=== PATIENT | male | born 1985 | race Two or more races ===

== ENCOUNTER 2018-05-29 00:10 | Emergency (ER) | payer MEDICAID ==
[~2018-05-29] VITALS: Ht 177.8 cm; Wt 90.7 kg
--- NOTE | 2018-05-29 00:27 | Emergency Room Report ---
History of Present Illness General Chief Complaint: Head Injury Source: Patient Present Illness HPI Is a 32-year-old male with no past medical history. He presents with chief complaint of head injury. Patient said he was drunk and was going home. He slipped and fell forward and hit his head on the ground. Unknown length of loss of consciousness. He has a small cut to the forehead. He has blood all over his head. No other injury. He said he felt better now. No dizziness. Denies any trauma from assault. Allergies: Coded Allergies: No Known Allergies (Unverified , 05/29/18) Patient History Past Medical History: see triage record, old chart reviewed Past Surgical History: none Pertinent Family History: none Social History: Reports: alcohol use; Denies: smoking Immunizations: other Reviewed Nursing Documentation: PMH: Agreed; PSxH: Agreed Nursing Documentation-PMH Past Medical History: No Stated History Review of Systems Eye: Denies: eye pain, blurred vision ENT: Denies: ear pain, nose congestion, throat swelling Respiratory: Denies: cough, shortness of breath Cardiovascular: Denies: chest pain, palpitations Gastrointestinal: Denies: abdominal pain, diarrhea, nausea, vomiting Musculoskeletal: Denies: back pain, joint pain Skin: Denies: rash Neurological: Denies: headache, numbness Endocrine: Denies: increased thirst, increased urine Hematologic/Lymphatic: Denies: easy bruising All Other Systems: negative except mentioned in HPI Physical Exam Vital Signs Date Time Temp Pulse Resp B/P (MAP) Pulse Ox O2 Delivery O2 Flow Rate FiO2 05/29/18 00:19 98.6 85 20 158/82 100 Room Air vitals with high blood pressure Sp02 EP Interpretation: reviewed, normal General Appearance: well appearing, no apparent distress, alert Head: normocephalic, other - 1-1/2 cm laceration to the forehead with small hematoma Eyes: bilateral eye PERRL, bilateral eye EOMI ENT: hearing grossly normal, normal pharynx Neck: full range of motion, supple, no meningismus Respiratory: chest non-tender, lungs clear, normal breath sounds Cardiovascular #1: regular rate, rhythm, no murmur Gastrointestinal: normal bowel sounds, non tender, no mass, no organomegaly, no bruit, non-distended Musculoskeletal: back normal, gait/station normal, normal range of motion Psychiatric: mood/affect normal Skin: warm/dry Procedures Laceration/Wound Repair Laceration/Wound Repair : Consent: Verbal Wound Location: face Wound's Depth, Shape: linear Wound Length (cm): 1 Wound Explored: clean Irrigated w/ Saline (ccs): 1000 Wound Repaired With: Dermabond Patient Tolerated: Well Complications: None Medical Decision Making Diagnostic Impression: Primary Impression: Acute head injury Qualified Codes: S09.90XA - Unspecified injury of head, initial encounter Additional Impressions: Forehead laceration Qualified Codes: S01.81XA - Laceration without foreign body of other part of head, initial encounter Alcohol intoxication Qualified Codes: F10.920 - Alcohol use, unspecified with intoxication, uncomplicated ER Course this patient presents with a head injury and laceration. No intracranial bleeding. We'll discharge home. CT/MRI/US Diagnostic Results CT/MRI/US Diagnostic Results : Imaging Test Ordered: CT head Impression negative per radiologist Last Vital Signs Date Time Temp Pulse Resp B/P (MAP) Pulse Ox O2 Delivery O2 Flow Rate FiO2 05/29/18 00:19 98.6 85 20 158/82 100 Room Air Status: improved Disposition: HOME, SELF-CARE Condition: Stable Scripts No Active Prescriptions or Reported Meds Additional Instructions: follow-up with your doctor in 7 days. Return if worse. Shai Kinney MD May 29, 2018 00:27
[2018-05-29] MEDS ORDERED: Hydrogen Peroxide 473ml Bottle TOPIC ONE (00:28)
[2018-05-29] MEDS: Tetanus/Diptheria/Pertussis IM ONE (00:31)
[2018-05-29 00:37] VITALS: BP 158/82
--- NOTE | 2018-05-29 00:53 | NUR ---
ER Nurse Note: Pt came from [facility] with family c/o forehead laceration d/t drinking five 6oz beers and fell on the stairs. Per pt, pt lost LOC for unk time, found by his . Pt a&ox4, VSS, no signs of distress. Pt ambulated, covered with dried blood; pt presented with a laceration on the forehead, actively bleeding. Will continue to [facility].
--- NOTE | 2018-05-29 01:03 | NUR ---
ER Nurse Note: Pt came back from CT; ERMD at pt side, using dermabond for the laceration. Pt tolerated well. All orders completed per ERMD orders. Bed in lowest position, will continue to [facility].
[2018-05-29 01:25] VITALS: BP 158/82
--- NOTE | 2018-05-29 01:25 | NUR ---
ER Nurse Note: Pt seen, treated, medicially cleared for discharge by CAROLE. Discharge instructions given with repeat verbalization by pt. Instructed pt follow up with primary care physican within one week. Pt a&ox4, VSS, no signs of distress. Pt left with steady gait. ID band removed. Pt left with own transportation with all belongings. Addendum: 05/29/18 at 0225 by NARENIMMoreno ER Nurse Note: Pt cleaned and given a new shirt. Pt walked with steady gait, left with family member.
--- NOTE | 2018-05-29 08:40 | Diagnostic Imaging Report ---
Indication: Reason For Exam: TRAUMA, pain Technique: Continuous helical CT scanning of the head was performed without intravenous contrast material. Axial and coronal 5 mm sections were generated. Radiation dose was minimized using automated exposure control Dose: Total Dose Length Product - DLP 1358.[address] Dose Index - CTDIvol(s) 70.38 mGy. Comparison: None FINDINGS: There is no acute intracranial hemorrhage, mass effect or cortical edema. Is no shift of midline structures. The ventricles, cisterns and sulci are normal for age. Mastoid air cells are clear. There is mild paranasal sinus disease with a partially visualized polyp versus retention cyst in the left maxillary sinus. Mild frontal scalp soft tissue swelling. No associated acute calvarial fracture. IMPRESSION: No evidence of acute intracranial hemorrhage, mass effect or cortical edema. Mild frontal scalp soft tissue swelling. No acute calvarial fracture. Mild paranasal sinus disease with partially visualized retention cyst versus polyp in the left maxillary sinus. Salient findings correspond with the statrad preliminary report. The CT scanner at [facility] is accredited by the [employer] and the scans are performed using protocols designed to limit radiation exposure to as low as reasonably achievable to attain images of sufficient resolution adequate for diagnostic evaluation.
== END 2018-05-29 01:25 | disposition home or self-care (01) ==
LOC: EMR 00:49
DX: S01.81XA Laceration without foreign body of other part of head, initial encounter (principal); W01.198A Fall on same level from slipping, tripping and stumbling with subsequent striking against other object, initial encounter; Y92.89 Other specified places as the place of occurrence of the external cause; F10.129 Alcohol abuse with intoxication, unspecified; Z23 Encounter for immunization
CPT/HCPCS: 12011; 70450; 90471; 90715; 99284; Z7502

== ENCOUNTER 2019-06-24 13:47 | Emergency (ER) | payer MEDICAID ==
[~2019-06-24] VITALS: Ht 167.6 cm; Wt 103.9 kg
[2019-06-24 13:52] VITALS: BP 123/77
[2019-06-24] MEDS ORDERED: Tetanus/Diptheria/Pertussis IM ONE (14:00)
[2019-06-24] MEDS ORDERED: Lidocaine 2% 20mg/ml/EPI 0.01mg/ml 20ml INJ ONE (14:15)
[2019-06-24] MEDS ORDERED: Bacitracin Oint UD TOPIC ONE (14:45)
--- NOTE | 2019-06-24 14:50 | Emergency Room Report ---
History of Present Illness General Chief Complaint: Laceration Source: Patient Present Illness HPI 34 YO male presents to the ED c/o 03/22 in severity painful laceration to the right forearm. Pt. reports he was cut last night at approx. 12pm by a piece of metal that was sticking out of some drywall. He denies fall or notable trauma. He denies suspicion of foreign body. Pt. does not know when his last tetanus vaccination was. Pt. is right hand dominant. He denies taking blood thinning medications. Palpation exacerbates his pain. No pain with extremity movements. Denies paresthesias or loss of gross motor movements of the right extremity. Allergies: Coded Allergies: No Known Allergies (Unverified , 05/29/18) COVID-19 Screening Contact w/high risk pt: No Recent Travel to affected area: No Experienced COVID-19 symptoms?: No COVID-19 Testing performed PRESS SETUP OPERATOR: No Patient History Past Medical History: see triage record Past Surgical History: none Pertinent Family History: none Reviewed Nursing Documentation: PMH: Agreed; PSxH: Agreed Nursing Documentation-PMH Past Medical History: No Stated History Review of Systems All Other Systems: negative except mentioned in HPI Physical Exam Vital Signs Date Time Temp Pulse Resp B/P (MAP) Pulse Ox O2 Delivery O2 Flow Rate FiO2 06/24/19 13:52 98.2 82 16 123/77 97 Room Air Sp02 EP Interpretation: reviewed, normal General Appearance: no apparent distress, alert, GCS 15, non-toxic Head: normocephalic, atraumatic Eyes: bilateral eye normal inspection, bilateral eye PERRL ENT: hearing grossly normal, normal voice Neck: full range of motion Respiratory: chest non-tender, lungs clear, normal breath sounds, speaking full sentences Cardiovascular #1: regular rate, rhythm, normal capillary refill Cardiovascular #2: 2+ radial (R) Musculoskeletal: normal range of motion, gait/station normal, non-tender Neurologic: alert, motor strength/tone normal, distal neuro normal, oriented x3 , sensory intact, responsive, speech normal, grossly normal Psychiatric: judgement/insight normal Skin: laceration - Right Forearm laceration approx 2 cm in length Procedures Laceration/Wound Repair Laceration/Wound Repair : Consent: Verbal Wound Location: upper extremity - Right Forearm Wound's Depth, Shape: irregular Wound Length (cm): 2 Wound Explored: clean Irrigated w/ Saline (ccs): 500 Anesthesia: Lidocaine w/ Epi Volume Anesthetic (ccs): 3 Wound Repaired With: sutures Suture Size/Type: 4:0 Number of Sutures: 5 Layer Closure?: No Sterile Dressing Applied?: Yes Splint Applied?: No Sling Applied?: No Patient Tolerated: Well Complications: None Medical Decision Making PA Attestation Dr. Marin Is my supervising Physician whom patient management has been discussed with. Diagnostic Impression: Primary Impression: Laceration ER Course 34 YO male presents to the ED c/o 03/22 in severity painful laceration to the right forearm. Pt. reports he was cut last night at approx. 12pm by a piece of metal that was sticking out of some drywall. He denies fall or notable trauma. He denies suspicion of foreign body. Pt. does not know when his last tetanus vaccination was. Pt. is right hand dominant. He denies taking blood thinning medications. Palpation exacerbates his pain. No pain with extremity movements. Denies paresthesias or loss of gross motor movements of the right extremity. Ddx considered but are not limited to laceration, tendon injury, cellulitis, amputation Vital signs: are WNL, pt. is afebrile H&PE are most consistent with: Right Forearm laceration approx 2 cm in length ORDERS: none required at this time, the diagnosis is clinical ED INTERVENTIONS: D/w pt. that lacerations closed with over 12 hours delay such as his are at increased risk of infection. Pt. made the decision to have sutures placed as he wanted the best cosmetic outcome possible. d/w pt. we will place sutures in a sterile fashion and place him on oral and topical abx. to decrease risk of infection. -Tetanus vaccine was administered as pt. vaccination status was unknown. - The wound was copiously irrigated with normal saline, and explored for foreign body for which no FB was found. - pt. is anesthetized with 1%lidocaine w. epi. - The wound was approximated and closed using 5 interrupted 4.0 Ethilon sutures. -Bacitracin and sterile dressing is applied. Discussed with patient: That we make every effort to approximate the laceration as best as we can so that scarring will be as cosmetically pleasing as possible with our limited cosmetic skill set in the Emergency dept. Regardless of our best efforts there will be scarring after laceration repair. The extent of scarring is unknown at this time. DISCHARGE: At this time pt. is stable for d/c to home. Will provide printed patient care instructions, and any necessary prescriptions. Care plan and follow up instructions have been discussed with the patient prior to discharge. Last Vital Signs Date Time Temp Pulse Resp B/P (MAP) Pulse Ox O2 Delivery O2 Flow Rate FiO2 06/24/19 13:52 98.2 81 16 123/77 (92) 97 Room Air Disposition: HOME, SELF-CARE Condition: Stable Scripts No Active Prescriptions or Reported Meds Referrals: [facility] Patient Instructions: Laceration Care, Adult Additional Instructions: Take medications as directed. SUTURES TO BE REMOVED IN 10 DAYS Follow up with a Primary Care Provider in 3-5 days, even if your symptoms have resolved. --Please review list of primary care clinics, if you do not already have a primary care provider Return sooner to ED if new symptoms occur, or current symptoms become worse. - Please note that this Emergency Department Report was dictated using [employer] cdl driver technology software, occasionally this can lead to erroneous entry secondary to interpretation by the dictation equipment. Chiqui Salvador June 24, 2019 14:50
[2019-06-24] MEDS ORDERED: BACITRACIN15 GM TOPIC (14:51)
[2019-06-24] MEDS ORDERED: CEPHALEXIN500 MG ORAL (14:51)
[2019-06-24 14:55] VITALS: BP 128/74
== END 2019-06-24 14:55 | disposition home or self-care (01) ==
LOC: EMR 14:12
DX: S51.811A Laceration without foreign body of right forearm, initial encounter (principal); W26.8XXA Contact with other sharp object(s), not elsewhere classified, initial encounter; Y93.9 Activity, unspecified; Y92.9 Unspecified place or not applicable
CPT/HCPCS: 12001; 90471; 90715; Z7502; 99283

== ENCOUNTER 2019-11-21 13:21 | Emergency (ER) | payer MEDICAID ==
[~2019-11-21] VITALS: Ht 165.1 cm; Wt 83.9 kg
[~2019-11-21 13:21] MED LIST: BACITRACIN15 GM TOPIC; CEPHALEXIN500 MG ORAL
--- NOTE | 2019-11-21 14:11 | Emergency Room Report ---
History of Present Illness General Chief Complaint: Lower Back Pain or Injury Source: Patient Present Illness HPI 34-year-old male presents to the emergency department complaining of 8 out of 10 severity diffuse low back pain that is been progressive since yesterday. Patient reports that he was moving long heavy pieces a slab yesterday at work and he began having some low back pain at the end of the day. Patient reports his pain progressed overnight and is now 8 out of 10 severity since this morning. Patient denies appreciable trauma or fall. He denies incontinence, saddle anesthesia, recent spinal procedures, fevers, chills, weakness or inability to ambulate. Patient reports his pain is exacerbated upon forward flexion. Patient states he has not taken any medication today for symptoms. No other aggravating or relieving factors. Allergies: Coded Allergies: No Known Allergies (Unverified , 05/29/18) COVID-19 Screening Contact w/high risk pt: No Recent Travel to affected area: No Experienced COVID-19 symptoms?: No COVID-19 Testing performed SPORTS OFFICIAL: No Patient History Past Medical History: see triage record Past Surgical History: none Pertinent Family History: none Reviewed Nursing Documentation: PMH: Agreed; PSxH: Agreed Nursing Documentation-PMH Past Medical History: No Stated History Review of Systems All Other Systems: negative except mentioned in HPI Physical Exam Vital Signs Date Time Temp Pulse Resp B/P (MAP) Pulse Ox O2 Delivery O2 Flow Rate FiO2 11/21/19 13:25 98.2 68 19 136/83 (100) 95 Room Air Sp02 EP Interpretation: reviewed, normal General Appearance: no apparent distress, alert, GCS 15, non-toxic Head: normocephalic, atraumatic Eyes: bilateral eye normal inspection, bilateral eye PERRL ENT: hearing grossly normal, normal voice Neck: full range of motion Respiratory: chest non-tender, lungs clear, normal breath sounds, speaking full sentences Cardiovascular #1: regular rate, rhythm Gastrointestinal: non tender, soft Genitourinary: normal inspection, no CVA tenderness Musculoskeletal: back normal, normal range of motion, gait/station normal, tender - diffuse lumbar paraspinal and midline ttp. FROM, no palpable step-off or obvious deformity. No localized spinous process ttp. Neurologic: alert, motor strength/tone normal, oriented x3, sensory intact, responsive, speech normal, normal gait Psychiatric: judgement/insight normal Skin: no rash, normal color Medical Decision Making PA Attestation Dr. Marin Is my supervising Physician whom patient management has been discussed with. Diagnostic Impression: Primary Impression: Low back pain Qualified Codes: M54.5 - Low back pain Additional Impression: Lumbosacral strain Qualified Codes: S39.012A - Strain of muscle, fascia and tendon of lower back, initial encounter ER Course 34-year-old male presents to the emergency department complaining of 8 out of 10 severity diffuse low back pain that is been progressive since yesterday. Patient reports that he was moving long heavy pieces a slab yesterday at work and he began having some low back pain at the end of the day. Patient reports his pain progressed overnight and is now 8 out of 10 severity since this morning. Patient denies appreciable trauma or fall. He denies incontinence, saddle anesthesia, recent spinal procedures, fevers, chills, weakness or inability to ambulate. Patient reports his pain is exacerbated upon forward flexion. Patient states he has not taken any medication today for symptoms. No other aggravating or relieving factors. Ddx considered: epidural abscess, fracture, sprain/strain, meningitis, spinal chord injury, sciatica, cauda equina, Pyelonephritis, renal calculi just to name a few. Vital signs reviewed and are WNL during ED visit. Pt. is afebrile with no signs of infection No new symptoms, and denies recent trauma. No saddle anesthesia noted, Pt. denies incontinence. Patient is able to squeeze his butt cheeks Neurovascular is intact ROM is limited due to pain * Mild Tenderness to palpation to paraspinal muscles of the lower back with some diffuse midline tenderness. *Pt. describes pain today as moderate and radiates across the lower back. ORDERS: none warranted at this time. INTERVENTIONS: - 30mg IM Toradol -Loading dose of Robaxin 1g PO -I do not identify an emergent condition at this time. With current presentation, pt. is stable for close outpatient follow up and conservative treatment. D/w pt. to return promptly to ED with worsening or new symptoms.- Pt. verbalizes' understanding and agreement with proposed treatment plan. DISCHARGE: At this time pt. is stable for d/c to home. Will provide printed patient care instructions, and any necessary prescriptions. Care plan and follow up instructions have been discussed with the patient prior to discharge. Last Vital Signs Date Time Temp Pulse Resp B/P (MAP) Pulse Ox O2 Delivery O2 Flow Rate FiO2 11/21/19 13:25 98.2 68 19 136/83 (100) 95 Room Air Status: improved Disposition: HOME, SELF-CARE Condition: Stable Scripts Ibuprofen* (MOTRIN*) 600 Mg Tablet 600 MG ORAL THREE TIMES A DAY, #20 TAB Prov: Chiqui Salvador 11/21/19 Lidocaine Patch* (Lidoderm Patch*) 1 Each Adh..patch 1 PATCH TOPIC DAILY, #30 PATCH 0 Refills Patch(es) may remain in place for up to 12 hours in any 24-hour period. Prov: Chiqui Salvador 11/21/19 Methocarbamol* (ROBAXIN-750*) 750 Mg Tablet 750 MG PO QID, #28 TAB 0 Refills Prov: Chiqui Salvador 11/21/19 Referrals: [facility] Departure Forms: Return to Work Return to Work Date: Nov 25, 2019 Other Restrictions: light duty. May return Sooner if Symptoms have resolved. Return to Full Activity: Nov 30, 2019 Work Restrictions: No Heavy Lifting Patient Instructions: Lumbosacral Strain Additional Instructions: Take medications as directed. Follow up with a Primary Care Provider in 3-5 days, even if your symptoms have resolved. --Please review list of primary care clinics, if you do not already have a primary care provider Return sooner to ED if new symptoms occur, or current symptoms become worse. Do not drink alcohol, drive, or operate heavy machinery while taking Robaxin ( Muscle Relaxers) as this may cause drowsiness. - Please note that this Emergency Department Report was dictated using [employer] knitting machine operator technology software, occasionally this can lead to erroneous entry secondary to interpretation by the dictation equipment. Chiqui Salvador Nov 21, 2019 14:11
[2019-11-21] MEDS ORDERED: ROBAXIN-750750 MG PO (14:12)
[2019-11-21] MEDS ORDERED: LIDODERM700 M1 TOPIC (14:12)
[2019-11-21] MEDS ORDERED: IBUPROFEN600 M1 ORAL (14:12)
[2019-11-21] MEDS ORDERED: Methocarbamol 500mg tab ORAL ONE (14:15)
[2019-11-21] MEDS ORDERED: Ketorolac 30mg Inj IM ONE (14:15)
--- NOTE | 2019-11-21 14:35 | NUR ---
ED Nurse Note:pain meds were given Pt cleared by health care Provider for discharge. DC instructions/prescription was given and explained to pt and verbalized understanding of teachings. All medical deviecs such as ID band removed. Pt is AAO x4, ambulatory and left with all personal belongings.
[2019-11-21 14:39] VITALS: BP 136/83
== END 2019-11-21 14:43 | disposition home or self-care (01) ==
LOC: EMR 14:10
DX: S39.012A Strain of muscle, fascia and tendon of lower back, initial encounter (principal); X50.0XXA Overexertion from strenuous movement or load, initial encounter; Y92.9 Unspecified place or not applicable; Y99.0 Civilian activity done for income or pay; M54.5 Low back pain
CPT/HCPCS: 96372; J1885; Z7502; 99283

== ENCOUNTER 2020-01-27 11:17 | Emergency (ER) | payer MEDICAID ==
[~2020-01-27] VITALS: Ht 170.2 cm; Wt 102.1 kg
[~2020-01-27 11:17] MED LIST changes: +IBUPROFEN600 M1 ORAL; +LIDODERM700 M1 TOPIC; +ROBAXIN-750750 MG PO
[2020-01-27 11:41] VITALS: BP 154/80
--- NOTE | 2020-01-27 11:43 | NUR ---
ED Nurse Note: Pt walked in from home, walks with a steady gait and his vitals signs are stable as documetned on RA. He states that he was tested for covid and was positive for COVID on 01/23. He states that today he has been feeling short of breath. His SPO2 is 100% on RA. His breathing is even and unlabored.
--- NOTE | 2020-01-27 13:05 | Emergency Room Report ---
History of Present Illness General Chief Complaint: Dyspnea/Respdistress Source: Patient Present Illness HPI The patient has been ill for 4 days. He tested positive for Covid recently. He has had diarrhea. The diarrhea has been yellow with no blood. He denies any abdominal pain. The diarrhea is somewhat improving. He denies any upper respiratory symptoms at this time. This includes shortness of breath, cough and chest pain. He denies sore throat. He has felt achy and feverish but did not document a temperature. His is also present with upper respiratory symptoms consistent with Covid. No sore throat, chest pain, palpitations, nausea, vomiting, dysuria, joint pain, rashes, depression, anxiety, visual changes, dizziness, headache. 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 COVID-19 Screening: Positive COVID-19 COVID-19 Testing Source: nasal Patient History Past Medical History: none, see triage record Social History: Reports: smoking Social History Narrative , works construction Reviewed Nursing Documentation: PMH: Agreed; PSxH: Agreed Nursing Documentation-PMH Past Medical History: No Stated History Review of Systems All Other Systems: negative except mentioned in HPI Physical Exam Vital Signs Date Time Temp Pulse Resp B/P (MAP) Pulse Ox O2 Delivery O2 Flow Rate FiO2 01/27/20 11:41 88 20 Room Air 01/27/20 11:41 98.7 154/80 100 Sp02 EP Interpretation: reviewed, normal General Appearance: well appearing, no apparent distress, GCS 15, non-toxic Head: normocephalic Eyes: bilateral eye normal inspection, bilateral eye PERRL, bilateral eye EOMI ENT: normal pharynx, moist mucus membranes Neck: full range of motion, supple Respiratory: lungs clear, normal breath sounds Cardiovascular #1: regular rate, rhythm Cardiovascular #2: 2+ radial (R) Gastrointestinal: normal inspection, normal bowel sounds, non tender, no mass, non-distended Genitourinary: no CVA tenderness Musculoskeletal: back normal, normal range of motion, gait/station normal Neurologic: alert, oriented x3, grossly normal Psychiatric: mood/affect normal Skin: no rash, warm/dry Medical Decision Making Diagnostic Impression: Primary Impression: Diarrhea due to COVID-19 ER Course Patient presents with complaint of diarrhea after testing positive for COVID-19. Differential includes COVID-19 diarrhea, food poisoning, gastroenteritis amongst others. Based on the clinical presentation COVID-19 is the likely diagnosis. There are no respiratory symptoms at this time. Loperamide is given. Laboratory evaluation is not indicated. Discussed treatment plan with patient. This patient was evaluated in the context of the global COVID-19 pandemic, which necessitated consideration that the patient might be at risk for infection with the [id number] virus that causes COVID-19. Institutional protocols and algorithms that pertain to the evaluation of patients at risk for COVID-19 and the state of rapid change based on information released by multiple regulatory bodies including the CDC and federal and state organizations. These policies and algorithms were followed during the patient's care in the ED. Patient is stable for outpatient observation and treatment. Last Vital Signs Date Time Temp Pulse Resp B/P (MAP) Pulse Ox O2 Delivery O2 Flow Rate FiO2 01/27/20 15:30 98.6 88 18 135/80 100 Room Air Status: improved Disposition: HOME, SELF-CARE Condition: Stable Scripts Loperamide Hcl (LOPERAMIDE) 2 Mg Capsule 2 MG PO BID, #6 CAP 1 Refill Prov: Yariel Bess MD 01/27/20 Referrals: NOT CHOSEN REMY/,REFERRING (PCP) Yariel Bess MD Jan 27, 2020 13:04
[2020-01-27] MEDS ORDERED: LOPERAMIDE2 MG PO (15:13)
[2020-01-27 15:30] VITALS: BP 135/80
--- NOTE | 2020-01-27 15:30 | NUR ---
ER DISCHARGE NOTE: Patient is cleared to be discharged per ERMD, pt is aox4, on room air, with stable vital signs. pt was given dc and prescription instructions, pt was able to verbalize understanding, pt id band removed. pt is able to ambulate with steady gait. pt took all belongings.
== END 2020-01-27 15:30 | disposition home or self-care (01) ==
LOC: EMR 12:38
DX: U07.1 COVID-19 (principal); R19.7 Diarrhea, unspecified
CPT/HCPCS: 99282